=== PATIENT | female | born 2005 | race Two or more races ===

== ENCOUNTER 2025-05-08 12:41 | Emergency (ER) | payer OTHER, SELFPAY ==
[2025-05-08 12:48] VITALS: BP 117/67; PULSE 101; RESP 18; TEMP 36.4; O2SAT 100
[2025-05-08 13:59] VITALS: BP 122/89; PULSE 102; RESP 20; O2SAT 100
[2025-05-08 14:04] LABS: Hematocrit 41.8 % (37.0-47.0); Hemoglobin 12.5 g/dL (12.0-15.0); Immature Platelet Fraction Pct 4.9 % (0.9-11.2); Mean Corpuscular HGB Conc 29.9 g/dl (32-36); Mean Corpuscular Hemoglobin 26.7 pg (26-34); Mean Corpuscular Volume 89.3 fl (80-100); Mean Platelet Volume 10.5 fl (7.4-10.4); Platelet Count Result 320 k/mm3 (150-375); Red Blood Count 4.68 M/mm3 (4.2-5.4); Red Cell Distribution Width 13.4 % (11.5-14.5); White Blood Count 7.4 K/mm3 (4.5-10.0)
[2025-05-08 14:16] VITALS: PULSE 95; RESP 16; O2SAT 100
[2025-05-08 14:18] LABS: Alanine Aminotransferase 21 U/L (6-35); Albumin Level 5.1 g/dL (3.5-5.1); Alkaline Phosphatase 78 U/L (38-126); Anion Gap 13 mmol/L (4-12); Aspartate Amino Transferase 28 U/L (14-36); Bilirubin,Total 0.4 mg/dL (0.2-1.3); Blood Urea Nitrogen 9 mg/dL (7-17); Calcium 9.9 mg/dL (8.4-10.2); Carbon Dioxide 22 mmol/L (22-30); Chloride 107 mmol/L (98-107); Estimated CRCL calculation 82 ml/min; Estimated Glomerular Filt Rate > 60; Glucose 89 mg/dL (65-110); Potassium 3.9 mmol/L (3.4-5.0); Sodium 142 mmol/L (137-145); Total Protein 8.2 g/dL (6.3-8.2)
[2025-05-08 14:20] LABS: Partial Thromboplastin Time 25.3 Seconds (22.3-36.8); Prothrombin Time 13.5 Seconds (11.1-14.7)
[2025-05-08 14:31] LABS: Band Neutrophils Percent 2 % (0-6); Hypochromasia 1+; Lymphocytes Absolute Manual 1.99 K/mm3 (1.1-4.5); Monocytes Absolute Manual 0.51 K/mm3 (0.1-0.90); Monocytes Percent Manual 7 % (3-9); Neutrophils Absolute Manual 4.88 K/mm3 (1.3-6.7); Neutrophils Percent Manual 64 % (46-73); Platelet Clumps Present; Platelet Estimate Adequate (Adequate); Schistocytes None Seen; Total Cells Counted 100
[2025-05-08 14:32] LABS: Anisocytosis 1+
[2025-05-08 14:38] LABS: Appearance Urine Cloudy (Clear); Color Urine Red (Yellow)
[2025-05-08 14:39] LABS: Add Urine Microscopic? YES; Glucose Urine UA Negative (Negative); Ketones Urine Negative (Negative); Nitrate Urine Negative (Negative); Protein Urine 1+ mg/dL (Negative); pH Urine 5.5 (5.0-9.0)
[2025-05-08 14:40] LABS: Bilirubin Urine Negative (Negative); Blood Urine 3+ (Negative); Leukocyte Esterase Ur Negative LEU/UL (Negative); Urobilinogen Urine 0.2 mg/dL (<2.0)
[2025-05-08 14:41] LABS: Bacteria Urine 2+ /hpf; RBC Urine 51-100 /hpf (0-2); Squamous Epithelial Cell Urine Rare /hpf (Few)
[2025-05-08 14:51] LABS: BEDSIDEPREGUCG Negative (Negative)
--- NOTE | 2025-05-08 15:42 | ED.FEMALEGU ---
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 Patient states she has very regular periods. She had an 8 day long period in May of 2024, then had a 1 month long period of October 2024. She has not had a period since until she started having mild bleeding in March of 2025. She states it was very light and noticed it when she would go to the bathroom. Over the past few days the bleeding has increased. She contacted her PCP in [place] who prescribed 15 days of Norethisterone which the patient took which helped with the bleeding. He also prescribed TXA Mefanamic which she has been taking for the past few days. States the bleeding had stopped while she was on the TXA until she missed her morning dose 2 days ago and the bleeding started again and has not stop despite her resuming the rest of her TXA. This is what prompted her to come to the ED. she states she has 4 more TXA pills left. She notes that she is having to change her pad every 3 hours. She denies passing clots. She reports associated mild intermittent abdominal cramping but no abdominal pain, fever, or vaginal discharge. She is not sexually active. She denies any dizziness, lightheadedness or syncope. Denies urinary symptoms. She is not established with a local OBGYN. Her PCP in [facility] also has prescribed her a drospirenone and ethinylestradiol control pack and the patient was instructed to start this 5 days into her next menstrual cycle. Related Data Allergies Allergy/AdvReac Type Severity Reaction Status Date / Time No Known Allergies Allergy Verified 05/08/25 12:45 Review of Systems Review of Systems: All systems reviewed & are unremarkable except as noted in HPI and below Exam Narrative: GENERAL: Well-appearing, well-nourished, and in no acute distress. HEAD: Normocephalic, atraumatic. EYES: EOMI. ENT: Nares clear, no rhinorrhea or epistaxis. Mucous membranes moist. NECK: Supple. CHEST: Clear to auscultation. No respiratory distress. HEART: Regular rate and rhythm. No murmur heard. Normal peripheral pulses. ABDOMEN: Soft, nontender, nondistended, normal active bowel sounds. No rebound, guarding or rigidity. : Deferred EXTREMITIES: Normal range of motion. No edema. SKIN: Warm, dry, no rash. NEURO: No focal deficits. Alert and oriented x3 Course Vital Signs Vital signs: Vital Signs Temperature 97.5 F L 05/08/25 12:48 Pulse Rate 101 H 05/08/25 12:48 Respiratory Rate 18 05/08/25 12:48 Blood Pressure 117/67 05/08/25 12:48 Pulse Oximetry 100 05/08/25 12:48 Temperature 97.5 F L 05/08/25 12:48 Pulse Rate 95 05/08/25 14:16 Respiratory Rate 16 05/08/25 14:16 Blood Pressure 122/89 05/08/25 13:59 Pulse Oximetry 100 05/08/25 14:16 MDM - Female Genitourinary MDM Narrative Medical decision making narrative: 19-year-old female with reported history of PCOS presents to the emergency department with her friend at bedside for dysfunctional uterine bleeding since March of 2025. Patient has a history of menometrorrhagia. Upon arrival to the ED patient's heart rate was mildly tachycardic at 101 which has since resolved. She is afebrile and nontoxic appearing resting comfortably in exam bed. Abdomen is soft and nontender. Lab work shows no leukocytosis or anemia. Chemistries are unremarkable. UA with 51-100 RBCs and 46 wbc's, 2+ bacteria, no nitrates. She denies any urinary symptoms. is negative. Coags are within normal limits. I discussed findings with patient and her friend at bedside. I had a long discussion in the patient's room discussing possible sources of abnormal uterine bleeding, most likely being her known PCOS. Overall she is very well-appearing and hemodynamically stable. I do not feel further emergent workup is indicated at this time. I discussed need for further outpatient workup and management by local OBGYN. I advised her to finish up the course of the TXA that was prescribed by her PCP in [place] and if the bleeding is not controlled at that time, to go ahead and start the control pack. The patient was given strict ED return precautions. She and her friend at bedside are agreeable with the plan verbalized understanding. Discharged in stable condition. Lab Data 05/08/25 13:57 05/08/25 13:57 Labs: Lab Results 05/08/25 05/08/25 Range/Units 13:57 14:49 WBC 7.4 (4.5-10.0) K/mm3 RBC 4.68 (4.2-5.4) M/mm3 Hgb 12.5 (12.0-15.0) g/dL Hct 41.8 (37.0-47.0) % MCV 89.3 (80-100) fl MCH 26.7 (26-34) pg MCHC 29.9 L (32-36) g/dl RDW 13.4 (11.5-14.5) % Plt Count 320 (150-375) k/mm3 MPV 10.5 H (7.4-10.4) fl Immature Gran % (Auto) Not Reportable Neut % (Auto) Not Reportable Lymph % (Auto) Not Reportable [place] % (Auto) Not Reportable Eos % (Auto) Not Reportable Baso % (Auto) Not Reportable Lymph # (Auto) Not Reportable [place] # (Auto) Not Reportable Eos # (Auto) Not Reportable Baso # (Auto) Not Reportable Abs Immat Gran (auto) Not Reportable Absolute Neuts (auto) Not Reportable Absolute Nucleated RBC Not Reportable Total Counted 100 Neutrophils % (Manual) 64 (46-73) % Band Neutrophils % 2 (0-6) % Lymphocytes % (Manual) 27.0 (18-44) % Monocytes % (Manual) 7 (3-9) % Nucleated RBC % Not Reportable Abs Neuts (Manual) 4.88 (1.3-6.7) K/mm3 Abs Lymphs (Manual) 1.99 (1.1-4.5) K/mm3 Abs Monocytes (Manual) 0.51 (0.1-0.90) K/mm3 Platelet Estimate Adequate (Adequate) Clumped Platelets Present % Immature Plt Fraction 4.9 (0.9-11.2) % Hypochromasia 1+ Anisocytosis 1+ Schistocytes None seen PT 13.5 (11.1-14.7) Seconds INR 1.0 APTT 25.3 (22.3-36.8) Seconds Sodium 142 (137-145) mmol/L Potassium 3.9 (3.4-5.0) mmol/L Chloride 107 (98-107) mmol/L Carbon Dioxide 22 (22-30) mmol/L Anion Gap 13 H (4-12) mmol/L BUN 9 (7-17) mg/dL Creatinine 0.74 (0.7-1.0) mg/dL Estim Creat Clear Calc 82 ml/min Estimated GFR > 60 (59 - ) Glucose 89 (65-110) mg/dL Calcium 9.9 (8.4-10.2) mg/dL Total Bilirubin 0.4 (0.2-1.3) mg/dL AST 28 (14-36) U/L ALT 21 (6-35) U/L Alkaline Phosphatase 78 (38-126) U/L Total Protein 8.2 (6.3-8.2) g/dL Albumin 5.1 (3.5-5.1) g/dL Urine Color Red H (Yellow) Urine Appearance Cloudy H (Clear) Urine pH 5.5 (5.0-9.0) Ur Specific [place] 1.020 (1.001-1.035) Urine Protein 1+ H (Negative) mg/dL Urine Glucose (UA) Negative (Negative) mg/dL Urine Ketones Negative (Negative) mg/dL Ur Blood (Man) 3+ H (Negative) Urine Nitrate Negative (Negative) Urine Bilirubin Negative (Negative) Urine Urobilinogen 0.2 (<2.0) mg/dL Leukocyte Esterase Rfl Negative (Negative) [place]ST[place]/UL Urine RBC 51-100 H (0-2) /hpf Urine WBC 4-6 H (0-3) /hpf Ur Squamous Epith Cells Rare (Few) /hpf Urine Bacteria 2+ H (None) /hpf POC Urine HCG, Qual Negative (Negative) Discharge Plan Discharge Clinical Impression: Dysfunctional uterine bleeding Patient Disposition: Home Condition: Stable Instructions: Antibiotic Form, Abnormal (Dysfunctional) Uterine Bleeding (ED) Additional Instructions: You were evaluated in the emergency department for abnormal uterine bleeding. Please continue the regimen that was prescribed by your doctor in [place] and follow-up closely with her inspector finishing. Return to the emergency department sooner if you develop abdominal pain, fever, dizziness, you lose consciousness or your saturating over 1 pad or tampon an hour. Take Tylenol or ibuprofen as needed for cramping. Patient Language: Tu[place] Follow-up/Referrals: Anna Choi MD [Physician] - PHYSICIAN,CAR [facility]ER [Primary Care Provider] -
[2025-05-08 16:18] VITALS: BP 106/82; PULSE 85; RESP 20; O2SAT 98
== END 2025-05-08 16:30 | disposition home or self-care (01) ==
PROVIDERS: Emergency Medicine; Emergency Provider Physician Assistant
DX: N93.8 Other specified abnormal uterine and vaginal bleeding (principal); E28.2 Polycystic ovarian syndrome
CPT/HCPCS: 36415; 80053; 81001; 81025; 85025; 85055; 85610; 85730; 99284